=== PATIENT | male | born 1975 | race Hispanic/Latino ===

== ENCOUNTER 2022-11-27 14:54 | Inpatient (IN) | payer OTHER ==
[~2022-11-27] VITALS: Ht 180.3 cm; Wt 123.7 kg
[2022-11-27 15:29] LABS: BASOPHILS % (AUTO) 0.4 % (0.0-5.0); EOSINOPHILS % (AUTO) 0.8 % (0.0-8.0); HEMATOCRIT 42.8 % (36-48); LYMPHOCYTES % (AUTO) 13.6 % (21.0-51.0); MEAN CORPUSCULAR HEMOGLOBIN 30.9 pg (27.0-33.0); MEAN CORPUSCULAR HGB CONC 32.2 g/dL (32.0-36.0); MEAN CORPUSCULAR VOLUME 95.7 fL (79-99); MONOCYTES % (AUTO) 7.2 % (3.0-13.0); NEUTROPHILS % (AUTO) 77.6 % (40.0-77.0); PLATELET COUNT (AUTO) 186 K/uL (130-400); RED BLOOD CELL COUNT(AUTO) 4.47 MIL/uL (4.00-5.50); RED CELL DISTRIBUTION WIDTH 15.5 % (11.0-15.5); WHITE BLOOD COUNT (AUTO) 11.2 K/uL (4.8-10.8)
[2022-11-27] MEDS ORDERED: 0.9%NACL 1000ML 1,000 ML IV ONE (15:30)
[2022-11-27 15:50] LABS: CREATININE 1.4 mg/dL (0.5-1.5)
[2022-11-27 15:55] LABS: ALBUMIN 3.3 g/dL (3.5-5.0)
[2022-11-27] MEDS ORDERED: FUROSEMIDE 40MG VIAL ONE (16:18)
[2022-11-27] MEDS ORDERED: KCL 20 MEQ ERTAB PO ONE (16:20)
[2022-11-27 17:16] LABS: ABG BASE EXCESS 0.2 mmol/L (-2.0-3.0); ABG HCO3 23.2 mmol/L (21.0-28.0); ABG OXYGEN SATURATION 97.3 % (95.0-99.0); ABG PCO2 33 mmHg (32-45)
[2022-11-27 17:53] LABS: APPEARANCE,URINE CLEAR (CLEAR); BILIRUBIN,URINE NEGATIVE (NEGATIVE); COLOR,URINE LIGHT-YELLOW (YELLOW); GLUCOSE, URINE (UA) NEGATIVE (NEGATIVE); KETONES,URINE NEGATIVE (NEGATIVE); LEUKOCYTE ESTERASE ,URINE NEGATIVE Leu/uL (NEGATIVE); NITRATE,URINE NEGATIVE (NEGATIVE); PH,URINE 5.5 (5.0-8.0); PROTEIN,URINE NEGATIVE (NEGATIVE); UROBILINOGEN,URINE 0.2 mg/dL (0.2-1.0)
[2022-11-27 17:59] LABS: MUCUS,URINE RARE LPF (None Seen); WBC,URINE 0-1 /HPF (0-1)
[2022-11-27] MEDS ORDERED: IOHEXOL-350 75 ML VIAL IV ONE (18:52)
[2022-11-27] MEDS ORDERED: POTASSIUM BICARB/CIT AC 25 MEQ TABLET.EFF PO ONE (19:00)
[2022-11-27] MEDS ORDERED: MORPHINE 2 MG SYG IV PRN (19:00)
[2022-11-27] MEDS ORDERED: POTASSIUM CHLORIDE 10% ELIXIR 20 MEQ/15 ML UDCUP PO PRN (19:00)
[2022-11-27] MEDS ORDERED: POTASSIUM CHLORIDE 20MEQ/100ML 100 ML IV PRN (19:00)
[2022-11-27] MEDS ORDERED: ONDANSETRON 4MG INJ IV PRN (19:00)
[2022-11-27] MEDS ORDERED: ACETAMINOPHEN 325 MG TAB PO PRN ×2 (19:00)
[2022-11-27] MEDS: INSULIN HUMULIN R 100 UNIT/ML 3ML SQ SCH (21:00)
[2022-11-27] MEDS: CEFTRIAXONE 1G VIAL IVPB SCH (21:13)
[2022-11-27] MEDS: DOXYCYCLINE 100MG+NS 250ML IV SCH (21:14)
[2022-11-27] MEDS: FUROSEMIDE 40MG VIAL IVP SCH (21:14)
[2022-11-27] MEDS: MORPHINE 4 MG SYG IV PRN (21:14)
[2022-11-27] MEDS: FAMOTIDINE 20MG TAB PO SCH (21:15)
[2022-11-27 21:45] VITALS: BP 143/103
[2022-11-27] MEDS ORDERED: FURO40TA5 PO (22:20)
[2022-11-27] MEDS ORDERED: METO-408 PO (22:20)
[2022-11-27 23:00] VITALS: BP 115/71
[2022-11-27] MEDS ORDERED: SODIUM CHLORIDE 3% FOR INHALATION 4 ML/AMP VIAL.NEB IH ONE (23:20)
[2022-11-28] MEDS: MORPHINE 4 MG SYG IV PRN ×4 (03:19→22:33)
[2022-11-28 04:39] VITALS: BP 105/64
[2022-11-28 05:07] LABS: BASOPHILS % (AUTO) 0.3 % (0.0-5.0); EOSINOPHILS % (AUTO) 0.7 % (0.0-8.0); HEMATOCRIT 42.1 % (42-54); LYMPHOCYTES % (AUTO) 17.5 % (21.0-51.0); MEAN CORPUSCULAR HEMOGLOBIN 30.7 pg (27.0-33.0); MEAN CORPUSCULAR HGB CONC 31.8 g/dL (32.0-36.0); MEAN CORPUSCULAR VOLUME 96.6 fL (79-99); MONOCYTES % (AUTO) 7.8 % (3.0-13.0); NEUTROPHILS % (AUTO) 73.3 % (40.0-77.0); PLATELET COUNT (AUTO) 190 K/uL (130-400); RED BLOOD CELL COUNT(AUTO) 4.36 MIL/uL (4.50-6.20); RED CELL DISTRIBUTION WIDTH 15.6 % (11.0-15.5); WHITE BLOOD COUNT (AUTO) 11.5 K/uL (4.8-10.8)
[2022-11-28 05:28] LABS: CREATININE 1.2 mg/dL (0.5-1.5); MAGNESIUM 1.6 mg/dL (1.80-2.40); PHOSPHORUS 4.9 mg/dL (2.5-4.9); POTASSIUM 3.6 mmol/L (3.5-5.1)
[2022-11-28] MEDS: INSULIN HUMULIN R 100 UNIT/ML 3ML SQ SCH ×4 (05:43→20:32)
[2022-11-28] MEDS: KCL 20 MEQ ERTAB PO PRN ×2 (05:59→12:18)
[2022-11-28] MEDS: MAGNESIUM 2GM PREMIX 50ML 50 ML IV PRN (06:02)
[2022-11-28] MEDS ORDERED: SODIUM CHLORIDE FOR INHALATION 3 ML VIAL.NEB. IH ONE (06:17)
[2022-11-28 08:00] VITALS: BP 123/71
[2022-11-28] MEDS: FAMOTIDINE 20MG TAB PO SCH ×2 (08:30→20:25)
[2022-11-28] MEDS: DOXYCYCLINE 100MG+NS 250ML IV SCH ×2 (08:30→20:23)
[2022-11-28] MEDS: FUROSEMIDE 40MG VIAL IVP SCH ×2 (08:30→20:25)
[2022-11-28] MEDS: ENOXAPARIN SODIUM 40 MG/0.4 ML SYRINGE SQ SCH (08:31)
[2022-11-28 12:00] VITALS: BP 114/77
[2022-11-28 16:23] VITALS: BP 118/71
[2022-11-28 19:38] VITALS: BP 122/86
[2022-11-28] MEDS: CEFTRIAXONE 1G VIAL IVPB SCH (20:23)
[2022-11-28] MEDS: CARVEDILOL 6.25 MG TABLET PO SCH (20:25)
[2022-11-28 22:43] VITALS: BP 135/90
[2022-11-29] MEDS: MORPHINE 4 MG SYG IV PRN ×3 (02:30→21:31)
[2022-11-29 03:31] VITALS: BP 126/87
[2022-11-29] MEDS: IPRATROPIUM/ALBUTEROL SULFATE 3 ML SOLUTION IH PRN ×3 (04:15→23:29)
[2022-11-29 05:12] LABS: MAGNESIUM 1.8 mg/dL (1.80-2.40); POTASSIUM 3.4 mmol/L (3.5-5.1)
[2022-11-29] MEDS: INSULIN HUMULIN R 100 UNIT/ML 3ML SQ SCH ×4 (06:08→19:55)
[2022-11-29] MEDS: KCL 20 MEQ ERTAB PO PRN (06:10)
[2022-11-29] MEDS: MAGNESIUM 2GM PREMIX 50ML 50 ML IV PRN (06:10)
[2022-11-29 08:00] VITALS: BP 133/74
[2022-11-29] MEDS: FUROSEMIDE 40MG VIAL IVP SCH ×2 (08:36→19:56)
[2022-11-29] MEDS: DOXYCYCLINE 100MG+NS 250ML IV SCH ×2 (08:36→19:56)
[2022-11-29] MEDS: CARVEDILOL 6.25 MG TABLET PO SCH (08:38)
[2022-11-29] MEDS: FAMOTIDINE 20MG TAB PO SCH ×2 (08:39→19:57)
[2022-11-29] MEDS: ENOXAPARIN SODIUM 40 MG/0.4 ML SYRINGE SQ SCH (08:40)
[2022-11-29 08:56] LABS: HEMATOCRIT 43.9 % (42-54); MEAN CORPUSCULAR HEMOGLOBIN 30.9 pg (27.0-33.0); MEAN CORPUSCULAR HGB CONC 31.9 g/dL (32.0-36.0); MEAN CORPUSCULAR VOLUME 96.9 fL (79-99); RED BLOOD CELL COUNT(AUTO) 4.53 MIL/uL (4.50-6.20); RED CELL DISTRIBUTION WIDTH 15.7 % (11.0-15.5); WHITE BLOOD COUNT (AUTO) 10.4 K/uL (4.8-10.8)
[2022-11-29 09:08] LABS: CREATININE 1.3 mg/dL (0.5-1.5); POTASSIUM 3.6 mmol/L (3.5-5.1)
[2022-11-29] MEDS: SACUBITRIL/VALSARTAN 1 EACH TABLET PO SCH (09:21)
[2022-11-29 12:01] VITALS: BP 119/79
[2022-11-29 16:00] VITALS: BP 119/90
[2022-11-29] MEDS: LACTULOSE 20 GM/30 ML UDCUP PO PRN (17:16)
[2022-11-29 19:54] VITALS: BP 125/82
[2022-11-29] MEDS: CEFTRIAXONE 1G VIAL IVPB SCH (19:56)
[2022-11-29] MEDS: CARVEDILOL 12.5 MG TABLET PO SCH (19:57)
[2022-11-29 23:32] VITALS: BP 117/88
[2022-11-30] MEDS: MORPHINE 4 MG SYG IV PRN ×2 (01:52→10:04)
[2022-11-30 04:13] VITALS: BP 100/77
[2022-11-30] MEDS: INSULIN HUMULIN R 100 UNIT/ML 3ML SQ SCH ×2 (05:55→11:30)
[2022-11-30] MEDS: IPRATROPIUM/ALBUTEROL SULFATE 3 ML SOLUTION IH PRN ×2 (06:19→11:09)
[2022-11-30 06:20] LABS: BASOPHILS % (AUTO) 0.5 % (0.0-5.0); EOSINOPHILS % (AUTO) 0.3 % (0.0-8.0); HEMATOCRIT 44.7 % (42-54); LYMPHOCYTES % (AUTO) 15.8 % (21.0-51.0); MEAN CORPUSCULAR VOLUME 96.8 fL (79-99); NEUTROPHILS % (AUTO) 75.1 % (40.0-77.0); PLATELET COUNT (AUTO) 177 K/uL (130-400); RED BLOOD CELL COUNT(AUTO) 4.62 MIL/uL (4.50-6.20); RED CELL DISTRIBUTION WIDTH 15.7 % (11.0-15.5); WHITE BLOOD COUNT (AUTO) 10.3 K/uL (4.8-10.8)
[2022-11-30 06:36] LABS: CREATININE 1.4 mg/dL (0.5-1.5); MAGNESIUM 1.9 mg/dL (1.80-2.40); PHOSPHORUS 5.6 mg/dL (2.5-4.9); POTASSIUM 3.9 mmol/L (3.5-5.1)
[2022-11-30] MEDS: LACTULOSE 20 GM/30 ML UDCUP PO PRN (06:53)
[2022-11-30 07:02] LABS: B-TYPE NATRIURETIC PEPTIDE 1540 pg/mL (0-100)
[2022-11-30 08:00] VITALS: BP 109/72
[2022-11-30] MEDS: FAMOTIDINE 20MG TAB PO SCH (09:53)
[2022-11-30] MEDS: CARVEDILOL 12.5 MG TABLET PO SCH (09:53)
[2022-11-30] MEDS: DOXYCYCLINE 100MG+NS 250ML IV SCH (09:54)
[2022-11-30] MEDS: SACUBITRIL/VALSARTAN 1 EACH TABLET PO SCH (09:55)
[2022-11-30] MEDS: FUROSEMIDE 40MG VIAL IVP SCH (09:56)
[2022-11-30] MEDS: ENOXAPARIN SODIUM 40 MG/0.4 ML SYRINGE SQ SCH (09:56)
[2022-11-30 12:00] VITALS: BP 104/55
[2022-11-30] MEDS ORDERED: FUROSEMIDE 40MG VIAL IVP SCH (14:00)
[2022-11-30] MEDS ORDERED: HYDROXYZINE 25 MG TABLET PO PRN (16:00)
== END 2022-11-30 15:48 | disposition left against medical advice (07) | DRG 292 ==
LOC: EDH 14:54 → EDSEX 14:54 → EDHIP 14:55 → 4BH 21:27 → 4AH 11-30 10:59
PROVIDERS: ADMIT Internal Medicine; ATTEND Internal Medicine
DX: I50.9 Heart failure, unspecified (principal); D68.69 Other thrombophilia; E87.3 Alkalosis; J91.8 Pleural effusion in other conditions classified elsewhere; K80.20 Calculus of gallbladder without cholecystitis without obstruction; D72.829 Elevated white blood cell count, unspecified; E87.6 Hypokalemia; Z79.899 Other long term (current) drug therapy; Z87.891 Personal history of nicotine dependence
CPT/HCPCS: 36415; 36600; 71045; 71270; 76705; 80048; 80053; 81001; 82803; 82948; 83036; 83605; 83690; 83735; 83880; 84100; 84132; 84145; 84443; 84484; 85025; 85027; 85378; 87040; 87071; 87205; 93005; 93306; 93356; 93970; 94640; 94664; G0378; J0696; J1650; J1940; J2270; J2405; J3475; J3490; Q9967